=== PATIENT | female | born 1975 | race Two or more races ===

== ENCOUNTER 2024-11-08 18:23 | Emergency (ER) | payer MEDICAID, SELFPAY ==
[2024-11-08 19:05] VITALS: BP 118/81; PULSE 77; RESP 18; TEMP 36.9; O2SAT 97; BMI 29.4
--- NOTE | 2024-11-08 19:18 | XR_ITS ---
Examination: CT abdomen with intravenous contrast CT pelvis with intravenous contrast 2-D coronal reconstructions 2-D sagittal reconstructions Date and time of exam:November 08, 2024 10:27 PM Indications: Onset right lower abdominal pain nausea vomiting today. CTDI: vol (mGy) 8 DLP: (mGycm) 401 Technique: Multiple axial sections of the abdomen and pelvis have been obtained. 64 slice high-resolution scanner used. 3 mm axial sections have been obtained, post intravenous injection 60 cc [id number] 2-D sagittal, coronal reconstructions obtained. Low dose protocols were performed. One or more of the following dose reduction techniques were used; automated exposure control, adjustment of the mA and/or KV according to patient size, use of iterative reconstruction technique. Findings: Fatty infiltration throughout the liver no focal liver or splenic lesion No gallstones No pancreatic or adrenal mass No renal or ureteral calculi, hydronephrosis Aorta normal size Normal appendix No bowel obstruction No diverticulitis Intact urinary bladder Small adnexal cysts Retroverted uterus Urinary bladder intact Osseous structures intact Impression: Normal appendix No renal or ureteral calculi, no hydronephrosis No bowel obstruction diverticulitis or free air
--- NOTE | 2024-11-08 19:21 | PD.EDABDPN ---
ED Abdominal Pain RME/HPI General Chief Complaint: Abdominal Pain Stated complaint: RLQ ABD PAIN Time seen by provider: 11/08/24 19:13 Arrival date/time: 11/08/24 18:23 RME / HPI RME / HPI narrative: 49-year-old female patient came in for evaluation regarding her right lower quadrant pain. Patient's been having right lower quadrant pain for the last 3 days, describes sharp pain, severity moderate. Patient denies any vomiting denies any fever denies any diarrhea denies constipation denies any other complaints no medications prior to ER visit. Related Data Previous Rx's ?Medication ?Instructions ?Recorded ibuprofen 600 mg tablet 600 mg PO Q6H #30 tabs 03/07/23 polyethylene glycol 3350 17 4 g PO QDAY PRN constipation #119 11/08/24 gram/dose oral powder (ClearLax) grams Allergies Allergy/AdvReac Type Severity Reaction Status Date / Time No Known Allergies Allergy Verified 11/08/24 18:26 Review of Systems Review of Systems Narrative Review of Systems: Review of system reviewed and within normal limits except mentioned in HPI ED Exam Narrative Physical exam: VITAL SIGNS: Reviewed. GENERAL APPEARANCE: Alert and interactive, follows commands, no acute distress, HEAD AND FACE: Non-traumatic. ENT: PERRL, pink conjunctivitis, eyelid no trauma, Mucous membrane moist. NECK: Supple, nontender, no nuchal rigidity. CHEST: No tenderness, no crepitus, no paradoxical movement, no retractions. LUNGS: Clear, well ventilated, symmetric, no rales, no wheezing, no ronchi, no stridor, good breath sounds bilaterally. HEART: Regular rate, regular rhythm, no murmur, no gallops. ABDOMEN: Soft, positive bowel sounds, nondistended, no guarding, right lower quadrant tenderness, no rebound, no masses, RECTAL: Deferred. GENITAL: Deferred. NEUROLOGICAL: Gross motor function intact sensory function intact, Appropriate for age. MUSCULOSKELETAL: low back nontender, full range of motion. EXTREMITIES: Nontender, full range of motion. SKIN: Color pink, dry, no rash, no lacerations, no abrasions, no contusions. LYMPHATICS: Deferred. Course Quality Measures none Orders Category Date Time Status CT Screening NOW Care 11/08/24 19:[address] abdomen pelvis w con Stat Exams 11/08/24 19:18 Completed CBC Stat Lab 11/08/24 20:40 Completed Comprehensive Metabolic Panel Stat Lab 11/08/24 20:40 Completed HCG Qualitative,Urine Stat Lab 11/08/24 20:05 Completed Lipase Stat Lab 11/08/24 20:40 Completed Partial Thromboplastin Time Stat Lab 11/08/24 20:40 Completed Prothrombin Time with INR Stat Lab 11/08/24 20:40 Completed UA, C/S IF [Urinalysis, C/S if Indicated] Stat Lab 11/08/24 20:05 Completed Vital Signs Vital signs: Vital Signs Temperature 98.4 F 11/08/24 19:05 Pulse Rate 77 11/08/24 19:05 Respiratory Rate 18 11/08/24 19:05 Blood Pressure 118/81 11/08/24 19:05 Pulse Oximetry (%) 97 11/08/24 19:05 Oxygen Delivery Method Room Air 11/08/24 19:05 Abdominal Pain MDM MDM Narrative MDM Narrative:: 49-year-old female patient came in for evaluation regarding her right lower quadrant pain. Patient's been having right lower quadrant pain for the last 3 days, describes sharp pain, severity moderate. Patient denies any vomiting denies any fever denies any diarrhea denies constipation denies any other complaints no medications prior to ER visit. CT scan of the abdomen pelvis Unremarkable. Patient's laboratory workup also came normal urine is normal I do not see any abnormality at this time. Results discussed with the patient. Patient appears nontoxic and hemodynamically stable. Patient discharged home and instructed to follow-up with primary care provider in 24 to 48 hours. Instructed to return to the emergency department immediately if worsening of symptoms Patient data External records reviewed:: None Clinical information provided by:: patient Social determinants that could affect healthcare access:: none Patient has the following chronic illnesses:: None How is presenting disease/condition affected by chronic disease/condition?: no chronic disease Evaluation data The following diagnostics were reviewed and interpreted by me:: lab results and radiology exam(s) Lab and/or radiology exams considered but not ordered:: None Interpretation Summary: See results Medications / Prescriptions Medications or Prescriptions considered but not ordered:: None Medication administrations:: None Consultations Consultation(s) initiated? (list below): No Diagnosis Differential diagnosis abdominal pain: abdominal pain, constipation and small bowel obstruction Most likely diagnosis given after review of the tests above:: Abdominal pain Admission Indicated Admission indicated?: not indicated Admission Request Was there a request for admission?: No Disposition Plan Disposition Plan: Discharge Discharge Attestation Discharge Attestation: The patient was given an opportunity to ask questions and understood the discharge instructions. Discharge instructions specifically effects, indications for sooner follow up or return to the emergency department, and the expected course of current diagnosis. Patient condition: Stable Discharge Plan Plan Patient Disposition: HOME (Self Care) Disposition Comment: Stable Prescriptions/Referrals Prescriptions/Med Rec: New polyethylene glycol 3350 [ClearLax] 17 gram/dose powder 4 g PO QDAY PRN (Reason: constipation) Qty: 119 0RF No Action ibuprofen 600 mg tablet 600 mg PO Q6H Qty: 30 0RF Referrals: Carlos Sales MD [Primary Care Provider] - In 1 week Problem List Clinical Impression: Abdominal pain Patient/Caregiver Discharge Instructions Discharge Activity: activity as tolerated Education Materials: Abdominal Pain Additional Instructions: Thank you for the opportunity for serving you today. You are stable for discharged . You are advised to: Follow-up with your PCP in 1 to 2 days Return to ED for worsening of symptoms Increase oral fluids Take medication as prescribed Print Language: Ecuadorean Stand Alone Forms: Anabelle Award Info., Patient Portal Info Letter KISHORE/CONNER Supervising Physician KISHORE/CONNER Supervising Physician: MD Meseret
[2024-11-08 20:12] LABS: Collection Type, Urine Clean Catch
[2024-11-08 20:16] LABS: Bilirubin,Urine Negative (Negative); Blood,Urine Trace (Negative); Clarity,Urine Clear (Clear/Hazy); Color,Urine Lt-Yellow (Lt Yel-Yel); Culture Indicated,Urine Not Indicated; Glucose, Urine Negative (Negative); Ketones,Urine Negative (Negative); Leukocyte Esterase,Urine Negative (Negative); Nitrite,Urine Negative (Negative); PH,Urine 6.5 (5.0-7.0); Protein,Urine Trace (Neg - Trace); RBC,Urine 5 /hpf (0-3); Specific Gravity,Urine 1.024 (1.001-1.035); Squamous Epithelial Cell,Urine 1 /hpf (0-5); Urobilinogen,Urine Negative mg/dL (0.0-1.0); WBC,Urine 2 /hpf (0-5)
[2024-11-08 20:20] LABS: HCG Qualitative,Urine Negative
[2024-11-08 21:27] LABS: Basophils % (Auto) 0 % (0-2.5); Eosinophils # (Auto) 0.2 Thou/mm3 (0.0-0.5); Eosinophils % (Auto) 2 % (0-10); Hematocrit 36.5 % (36.0-46.0); Hemoglobin 12.7 g/dL (12.0-16.0); Immature Granulocytes % (Auto) 0 % (0-0); Immature Granulocytes Auto 0.02 Thou/mm3 (0.00-0.00); Lymphocytes # (Auto) 3.5 Thou/mm3 (1.0-4.8); Lymphocytes % (Auto) 33 % (10-50); Mean Corpuscular HGB Conc 34.8 g/dl (31.0-37.0); Mean Corpuscular Hemoglobin 30.2 pg (25.0-35.0); Mean Corpuscular Volume 87 fL (80-100); Monocytes # (Auto) 0.7 Thou/mm3 (0.0-0.8); Monocytes % (Auto) 7 % (0-12); Neutrophils # (Auto) 6.3 Thou/mm3 (1.8-7.7); Neutrophils % (Auto) 58 % (37-80); Nucleated Red Blood Cell % 0 /100 WBC (0); Platelet Count 226 Thou/mm3 (140-440); RDW Standard Deviation 39.8 fL (36.4-46.3); White Blood Count 10.8 Thou/mm3 (3.6-11.0)
[2024-11-08 21:47] LABS: Partial Thromboplastin Time 25.8 Seconds (22.0-36.0)
[2024-11-08 21:51] LABS: Alanine Aminotransferase 54 U/L (10-49); Albumin, Serum 4.3 gm/dL (3.5-5.0); Albumin/Globulin Ratio 1.5 (1.2-2.2); Alkaline Phosphatase 60 U/L (46-116); Anion Gap 9 (7-16); Aspartate Amino Transferase 34 U/L (0-34); BUN/Creatinine Ratio 20 Ratio (12-20); Bilirubin,Total 0.7 mg/dL (0.3-1.2); Blood Urea Nitrogen 12 mg/dL (9-23); Calcium 8.9 mg/dL (8.3-10.6); Calcium (Corrected) 8.9 mg/dL (8.5-10.1); Carbon Dioxide 24.7 mMol/L (20.0-31.0); Chloride 108 mMol/L (98-107); Creatinine (Component) 0.6 mg/dL (0.6-1.3); Estimated Creatinine Clearance 108.5 mL/min (>60); Globulin 2.9 gm/dL (2.3-3.5); Glucose 91 mg/dL (74-106); Lipase 38 U/L (12-53); Osmolality,Calculated 282 (275-295); Potassium 3.6 mMol/L (3.4-5.1); Sodium 142 mMol/L (136-145); Total Protein 7.2 gm/dL (5.7-8.2); eGFR > 60 See Note
[2024-11-08 23:00] VITALS: RESP 18
== END 2024-11-08 23:00 | disposition home or self-care (01) ==
PROVIDERS: Nurse Practitioner Family; Emergency Provider Emergency Medicine; PCP Family Medicine
DX: R10.31 Right lower quadrant pain (principal)
CPT/HCPCS: 36415; 74177; 80053; 81001; 81025; 83690; 85025; 85610; 85730; 99285; A4649; Q9967

== ENCOUNTER 2025-02-22 20:46 | Emergency (ER) | payer MEDICAID, SELFPAY ==
[2025-02-22 20:47] VITALS: BMI 26.6
--- NOTE | 2025-02-22 20:54 | XR_ITS ---
Examination: Wrist, left 3 views Technique: Wrist AP, oblique, lateral 3 views Date and time of exam: February 22, 2025 at 2054 hours INDICATIONS: Patient fell today with intravenous, wrist pain. FINDINGS: Small chip fracture dorsal to the carpal bones on the lateral view, 2 mm No dislocation IMPRESSION: Consider CT scan wrist follow-up to assess origin of the small chip fracture dorsal to the carpal bones on the lateral view
[2025-02-22 20:59] VITALS: BP 122/71; PULSE 84; RESP 18; TEMP 37.2; O2SAT 97
--- NOTE | 2025-02-22 21:18 | XR_ITS ---
Examination: CT cervical spine without contrast 2-D sagittal reconstructions 2-D coronal reconstructions 3-D reconstructions. Exam date and time:February 22, 2025, 7 hours INDICATIONS: Ground-level fall today with injury to the neck, neck pain CTDI:vol (mGy) 16.3 DLP: (mGycm) 338 Technique: Multiple 2 mm axial sections of the cervical spine have been obtained. The coronal and sagittal reconstructions have been obtained. 3-D reconstructions have been obtained. Low dose protocols were performed. One or more of the following dose reduction techniques were used; automated exposure control, adjustment of the mA and/or KV according to patient size, use of iterative reconstruction technique. Findings: Axial sections demonstrate intact base of the skull. C1 exhibit satisfactory relationship to the odontoid. No acute cervical vertebral body fracture seen. Alignment posterior spinous processes satisfactory. Impression: No acute cervical fracture.
--- NOTE | 2025-02-22 21:18 | XR_ITS ---
Examination: CT brain head without contrast. 2-D sagittal coronal reconstructions Date and time of exam:February 22, 2025 2155 hours INDICATIONS: Patient fell today with a few the head, head pain CTDI: vol (mGy):48.6 DLP: (mGycm):900 Technique: Multiple CT axial sections of the brain have been obtained, 5 mm slice thickness. Contrast has not been administered. 2-D sagittal, coronal reconstructions have been obtained Low dose protocols were performed. One or more of the following dose reduction techniques were used; automated exposure control, adjustment of the mA and/or KV according to patient size, use of iterative reconstruction technique. Findings: No significant ventricular enlargement. Intra-axial or extra-axial hemorrhage density is not seen. No mass effect or midline shift Basal cisterns are not remarkable. Fourth ventricle is midline. Cranial vault intact. Impression: Negative for acute hemorrhage, mass effect or midline shift
--- NOTE | 2025-02-22 21:18 | XR_ITS ---
Examination: CT maxillofacial, without intravenous contrast. 2-D sagittal reconstructions. 3-D reconstructions. Indications: Patient fell today, patient with facial pain. Date and time: February 22, 2025, 9:59 PM CTDI: vol (mGy): 26.8 DLP: (mGycm): 512 Technique: Multiple axial images of maxillofacial region, 3.0 mm slice thickness. 2-D sagittal and coronal reconstructions. 3-D reconstructions. Low dose protocols were performed. One or more of the following dose reduction techniques were used; automated exposure control, adjustment of the mA and/or KV according to patient size, use of iterative reconstruction technique. Findings: Frontal bone frontal sinuses intact. Orbital rims are intact. No nasal bone fracture. The maxilla maxilla and mandible appear intact IMPRESSION: No acute fracture.
--- NOTE | 2025-02-22 21:19 | PD.EDUPEX ---
Upper Extremity Injury RME/HPI General Chief Complaint: Extremity Injury, Upper Stated Complaint: LEFT WRIST INJURY Time Seen by Provider: 02/22/25 21:18 Arrival date/time: 02/22/25 20:46 49F with no significant PMH presents to ED with L-sided body pain after slip and fall. Patient has L head, face, shoulder, wrist/hand, hip, and knee pain. Limitations: no limitations Related Data Previous Rx's ?Medication ?Instructions ?Recorded ibuprofen 600 mg tablet 600 mg PO Q6H #30 tabs 03/07/23 polyethylene glycol 3350 17 4 g PO QDAY PRN constipation #119 11/08/24 gram/dose oral powder (ClearLax) grams Allergies Allergy/AdvReac Type Severity Reaction Status Date / Time No Known Allergies Allergy Verified 11/08/24 18:26 Review of Systems Review of Systems Systems Reviewed: All systems reviewed, normal except as documented Constitutional Constitutional: Reports system reviewed and no additional complaints, except as documented, Denies fever(s) and Denies headache(s) ENT Ears, Nose, Mouth, and Throat: Denies disequilibrium and Denies headache(s) Cardiovascular Cardiovascular: Reports system reviewed and no additional complaints, except as documented, Denies chest pain and Denies dyspnea Respiratory Respiratory: Reports system reviewed and no additional complaints, except as documented, Denies cough and Denies dyspnea Gastrointestinal Gastrointestinal: Reports system reviewed and no additional complaints, except as documented, Denies abdominal pain, Denies nausea and Denies vomiting Musculoskeletal Musculoskeletal: Reports as per HPI and Reports arthralgias Neurologic Neurologic: Reports system reviewed and no additional complaints, except as documented, Denies confusion, Denies disequilibrium and Denies headache(s) Psychiatric Psychiatric: Denies confusion Past Medical History Past Medical History NEUROLOGIC: Negative Neurological Disorders or Seizures CARDIAC: Negative Cardiac Disorders or Congestive Heart Failure RESPIRATORY: Negative Chronic Obstructive Pulmonary Disease (COPD) or Asthma GASTROINTESTINAL: Negative Gastrointestinal Disorders, Hepatitis or Colorectal Cancer GENITOURINARY: Negative Genitourinary Disorders, Renal Disease or Prostate Cancer REPRODUCTIVE: Negative Breast Cancer or Testicular Cancer MUSCULOSKELETAL: Negative Musculoskeletal Disorders, Bone Cancer or Carpal Tunnel Syndrome ENT: Negative Cataracts ENDOCRINE: Negative Endocrine Disorders, Diabetes Mellitus Type 1 or Diabetes Mellitus Type 2 HEMATOLOGIC: Negative Blood Disorders or Sickle Cell Disease OTHER HISTORY: Negative Hospitalization, Autoimmune Disease, Down Syndrome, Developmental Delay, Shingles, Falls, Blood Transfusions, Blood Transfusion Reaction, Anesthesia Reactions, Organ Transplant, Chemotherapy, Radiation Therapy, Hyperbaric Therapy, MRSA, VRSA, Vancomycin-Resistant Enterococci, Human Immunodeficiency Virus (HIV), Chicken Pox, Measles, Mumps, Rubella (Maltese Measles), Pertussis, Clostridium Difficile, Breast Cancer, Cervical Cancer, Colorectal Cancer, Lung Cancer, Ovarian Cancer, Prostate Cancer or Testicular Cancer Family History FAMILY HISTORY: Negative Family Psychiatric Problems, Family Respiratory Disorders, Family Cardiac Disorders, Family Gastrointestinal Problems, Family Cancer, Family Surgery or Family Anesthesia Reaction Surgical History SURGICAL: Positive Section; Negative Cardiac Surgery, Endocrine Surgery, Ear Surgery, Tympanostomy Tube, Eye Surgery, Nose Surgery, Oral Surgery, Tonsillectomy, Adenoidectomy, Cochlear Implant, Corneal Transplant, Throat Surgery, Abdominal Surgery, Tracheostomy, Nephrectomy, Transurethral Resection, Joint Replacement, Amputation, Open Reduction Internal Fixation, Arthroscopy, Neurologic Surgery, Mastectomy, Lumpectomy, Hysterectomy, Tubal Ligation or Organ Transplant Social History SMOKING STATUS: Never smoker SECOND HAND EXPOSURE: No ED Exam General Limitations: Present no limitations General appearance: Present alert and in no apparent distress Expanded Head Exam Head exam physical: Present hematoma (L-side of face) Eye Eye exam: Present normal appearance, PERRL and EOMI ENT ENT exam: Present normal exam, normal oropharynx and mucous membranes moist Neck Neck exam: Present normal inspection, full ROM and trachea midline Chest Chest inspection: Present normal inspection and symmetric chest wall rise Respiratory Respiratory exam: Present normal lung sounds bilaterally Cardiovascular Cardiovascular exam: Present regular rate, normal rhythm and normal heart sounds Abdominal Exam Abdominal exam: Present soft and normal bowel sounds Extremities Exam Extremities exam: Present full ROM Expanded Upper Extremity Exam Shoulder exam: Present full ROM and abrasion (L) Forearm/Wrist exam: Present tenderness (L); Absent full ROM Hand exam: Present tenderness; Absent full ROM Back Exam Back exam: Present normal inspection and full ROM Neurological Exam Neurological exam: Present alert, oriented X3 and CN II-XII intact Psychiatric Psychiatric exam: Present normal affect and normal mood Skin Skin exam: Present warm, dry, intact and normal color Course Quality Measures none Orders Category Date Time Status Splint / Immobilizer STAT Care 02/22/25 22:[address] cervical spine wo con Stat Exams 02/22/25 21:[address] facial bones wo con Stat Exams 02/22/25 21:[address] head/brain wo con Stat Exams 02/22/25 21:[address] wrist LT wo con Stat Exams 02/22/25 21:38 Completed XR wrist comp LT min 3V Stat Exams 02/22/25 20:54 Completed Vital Signs Vital signs: Vital Signs Temperature 98.9 F 02/22/25 20:59 Pulse Rate 84 02/22/25 20:59 Respiratory Rate 18 02/22/25 20:59 Blood Pressure 122/71 02/22/25 20:59 Pulse Oximetry (%) 97 02/22/25 20:59 Oxygen Delivery Method Room Air 02/22/25 20:59 O2 at 97% on RA and WNLs Extremity Injury MDM Narrative MDM Narrative:: 49F with no significant PMH presents to ED with L-sided body pain after slip and fall. Patient has L head, face, shoulder, wrist/hand, hip, and knee pain. Physical exam reveals some bruising on L-side of face. Neck ROM intact. L shoulder ROM intact. L wrist/hand tenderness and limited ROM. L knee/hip ROM intact. Gait normal. Patient is afebrile, calm, and alert. Various non-bleeding skin abrasions on L shoulder area. CT unremarkable except for 2 mm chip fx on triquetrum. Given splint and reimbursement counselor. Patient data External records reviewed:: [facility] previous records Clinical information provided by:: patient Social determinants that could affect healthcare access:: none Patient has the following chronic illnesses:: none How is presenting disease/condition affected by chronic disease/condition?: no chronic disease Evaluation data The following diagnostics were reviewed and interpreted by me:: radiology exam(s) Lab and/or radiology exams considered but not ordered:: ordered Interpretation Summary: above Medications / Prescriptions Medications or Prescriptions considered but not ordered:: not ordered Medication administrations:: n/a Consultations Consultation(s) initiated? (list below): No Diagnosis Upper Extremity Injury Differential Diagnosis: sprain and strain of wrist, fracture of wrist, finger sprain, dislocation of finger, Colles' fracture, fracture of hand and other (CHI, soft tissue contusion, skin abrasions) Most likely diagnosis given after review of the tests above:: hand fracture, skin abrasion, and soft tissue contusion, CHI Admission Indicated Admission indicated?: not indicated Admission Request Was there a request for admission?: No Disposition Plan Disposition Plan: Discharge Discharge Attestation Discharge Attestation: The patient and all family members were given an opportunity to ask questions and understood the discharge instructions. Discharge instructions specifically effects, indications for sooner follow up or return to the emergency department, and the expected course of current diagnosis. Patient condition: Stable Discharge Plan Plan Patient Disposition: HOME (Self Care) Discharge Disposition comment: Stable Prescriptions/Referrals Prescriptions/Med Rec: No Action ibuprofen 600 mg tablet 600 mg PO Q6H Qty: 30 0RF polyethylene glycol 3350 [ClearLax] 17 gram/dose powder 4 g PO QDAY PRN (Reason: constipation) Qty: 119 0RF Referrals: No Primary/Family,Physician [Primary Care Provider] - In 1 week Problem List Clinical Impression: Fracture of hand, Contusion of soft tissue, Abrasion of skin, CHI (closed head injury) Patient/Caregiver Discharge Instructions Education Materials: ED Abrasions, ED Soft Tissue Contusion, ED Closed Hand Fracture (Adult), ED Head Injury with Sleep ... Additional Instructions: Please follow-up with PCP within 24-48 hours and return immediately if symptoms worsen. If problem persists, recommend outpatient PT and/or MRI follow-up. In the meantime, rest, use ice/heat, and/or compression. Can see PCP for referral to hand surgeon. Print Language: Tajik Stand Alone Forms: Patient Portal Info Letter KISHORE/CONNER Supervising Physician KISHORE/CONNER Supervising Physician: Dr. Worthy
--- NOTE | 2025-02-22 21:38 | XR_ITS ---
Examination: CT left wrist, without contrast. 2-D sagittal reconstructions. 2-D coronal reconstructions. 3-D reconstructions. Date and time of exam:February 22, 2025, 1004 hours INDICATIONS: Patient slipped and fell today with injury to the wrist, wrist pain CTDI: vol (mGy):3.74 DLP: (mGycm):105 Technique: Multiple 1.25 mm axial sections of the left wrist without intravenous contrast have been obtained. 2-D sagittal and coronal reconstructions have been obtained. 3-D reconstructions have been obtained. Low dose protocols were performed. One or more of the following dose reduction techniques were used; automated exposure control, adjustment of the mA and/or KV according to patient size, use of iterative reconstruction technique. Findings: Distal radius distal ulna is intact Small acute chip fracture off the dorsal surface of the triquetrum axial image 117, coronal image 43 Metacarpals appear intact IMPRESSION: 2 mm acute chip fracture off the dorsal surface of the triquetrum
== END 2025-02-23 00:17 | disposition home or self-care (01) ==
PROVIDERS: Emergency Provider Emergency Medicine
DX: S62.112A Displaced fracture of triquetrum [cuneiform] bone, left wrist, initial encounter for closed fracture (principal); S00.93XA Contusion of unspecified part of head, initial encounter; S80.812A Abrasion, left lower leg, initial encounter; S19.9XXA Unspecified injury of neck, initial encounter; R51.9 Headache, unspecified; W01.0XXA Fall on same level from slipping, tripping and stumbling without subsequent striking against object, initial encounter
CPT/HCPCS: 29125; 70450; 70486; 72125; 73110; 73200; 99284

== ENCOUNTER → 2025-03-02 | Outpatient (CLI) | payer MEDICAID, SELFPAY ==
--- NOTE | 2025-03-02 09:02 | XR_ITS ---
Examination: Wrist, left 3 views Technique: Wrist AP, oblique, lateral 3 views Date and time of exam: March 12, 2025 0943 hours INDICATIONS: Injury to the wrist January 2025, CT wrist February 22, 2025 2 mm chip fracture off the dorsal surface of the triquetrum FINDINGS: No fracture depicted on this study On the hand examination today 2 mm chip fracture dorsal to the carpal bones on the lateral view IMPRESSION: Satisfactory alignment osseous structures
--- NOTE | 2025-03-02 09:02 | XR_ITS ---
Examination: Hand, left 3 views Technique: Hand AP, oblique, lateral 3 views Date and time of exam: March 12, 2025 0943 hours INDICATIONS: Injury January 2025 to the wrist, CT study February 22, 2025 2 mm chip fracture off the dorsal surface of the triquetrum FINDINGS: Moderate narrowing fifth metacarpal phalangeal joint 2 mm chip fracture dorsal to the carpal bones on the lateral view IMPRESSION: 2 mm chip fracture dorsal to the carpal bones on the lateral view
== END | disposition home or self-care (01) ==
PROVIDERS: Referring Provider Nurse Practitioner Gerontology; Visit Provider Nurse Practitioner Gerontology
DX: S62.102A Fracture of unspecified carpal bone, left wrist, initial encounter for closed fracture (principal); X58.XXXA Exposure to other specified factors, initial encounter
CPT/HCPCS: 73110; 73130

== ENCOUNTER → 2025-04-04 | Outpatient (CLI) | payer MEDICAID, SELFPAY ==
--- NOTE | 2025-04-04 10:08 | XR_ITS ---
Examination: Hand, left 3 views Technique: Hand AP, oblique, lateral 3 views Date and time of exam: April 04 thousand 25, 1014 hours INDICATIONS: History fracture fifth digit FINDINGS: Tiny bone density dorsal to the carpal bones No acute fracture depicted Prominent osteopenia IMPRESSION: No acute digit fracture noted
== END | disposition home or self-care (01) ==
LOC: CDIM 09:54
PROVIDERS: Referring Provider Nurse Practitioner Gerontology; Visit Provider Nurse Practitioner Gerontology
DX: M79.642 Pain in left hand (principal)
CPT/HCPCS: 73130

== ENCOUNTER → 2025-04-12 | Outpatient (CLI) | payer MEDICAID, SELFPAY ==
--- NOTE | 2025-04-12 09:49 | XR_ITS ---
Examination: Wrist, left 3 views Technique: Wrist AP, oblique, lateral 3 views Date and time of exam: April 12, 2020 5:11 AM INDICATIONS: Wrist fracture February 22, 2025 FINDINGS: On this study alignment of the osseous structures is satisfactory Please see the CT wrist report February 22, 2025 IMPRESSION: Consider repeat CT chest without contrast to assess the 2 mm chip fracture off the dorsal surface of the triquetrum
== END | disposition home or self-care (01) ==
PROVIDERS: Referring Provider Nurse Practitioner Gerontology; Visit Provider Nurse Practitioner Gerontology
DX: S62.172A Displaced fracture of trapezium [larger multangular], left wrist, initial encounter for closed fracture (principal); X58.XXXA Exposure to other specified factors, initial encounter
CPT/HCPCS: 73110

== ENCOUNTER → 2025-05-10 | Outpatient (CLI) | payer MEDICAID, SELFPAY ==
--- NOTE | 2025-05-10 09:30 | XR_ITS ---
Examination: CT left wrist, without contrast. 2-D sagittal reconstructions. 2-D coronal reconstructions. 3-D reconstructions. Date and time of exam: May 10, 2025, 0937 hours INDICATIONS: Patient fell 3 months ago with injury to the wrist, 2 mm chip fracture on plain films 04/12/2025 which appears to be off the dorsal surface of the triquetrum CTDI: vol (mGy): 2.76 DLP: (mGycm): 58.6 Technique: Multiple 1.25 mm axial sections of the left wrist without intravenous contrast have been obtained. 2-D sagittal and coronal reconstructions have been obtained. 3-D reconstructions have been obtained. Low dose protocols were performed. One or more of the following dose reduction techniques were used; automated exposure control, adjustment of the mA and/or KV according to patient size, use of iterative reconstruction technique. Findings: Distal radius distal ulna intact Carpal bones appear intact No carpal dislocation No foreign body There is subtle irregularity at the dorsal surface of the triquetrum axial image 49 IMPRESSION: Subtle irregularity of the dorsal surface of the triquetrum Recommend MRI wrist follow-up to exclude bone contusion small subtle fractures dorsal surface of the triquetrum
== END | disposition home or self-care (01) ==
LOC: CCTX 09:27
PROVIDERS: Referring Provider Nurse Practitioner Gerontology; Visit Provider Nurse Practitioner Gerontology
DX: M25.532 Pain in left wrist (principal); S69.92XS Unspecified injury of left wrist, hand and finger(s), sequela; W19.XXXS Unspecified fall, sequela
CPT/HCPCS: 73200

== ENCOUNTER → 2025-07-16 | Outpatient (CLI) | payer MEDICAID, SELFPAY ==
--- NOTE | 2025-07-16 07:00 | XR_ITS ---
Examination: MRI left hand without contrast Date and time of exam: July 16, 2025, 0858 hours INDICATIONS: Left wrist pain and swelling paresthesias 6 months after fall resulting in wrist fracture Technique: Multiple MRI axial and sagittal sections left hand Sagittal T2-weighted images, TR 3500, TE 118 T1 weighted transverse sections, TR 688 T8.5, T2-weighted sagittal sections T1 weighted sagittal sections TR 621, TE 30 T2 axial sections, TR 4, 190, TE 84. Findings: Adequate marrow signal visualized carpal bones and metacarpals digits No asymmetric effusions No annular christina tears Edema around the flexor tendon fifth digit distal phalanx Flexor and extensor tendons intact No ganglion cyst IMPRESSION: No occult fracture or bone contusion or marrow edema Edema around the flexor tendon fifth digit distal phalanx but the tendon appears intact
--- NOTE | 2025-07-16 07:30 | XR_ITS ---
Examination: MRI left wrist without contrast Date and time of exam: July 16, 2025, 0839 hours INDICATIONS: Left wrist pain and swelling paresthesias 5 months, history left wrist fracture Technique: Multiple MRI axial and sagittal sections lumbar spine. Sagittal T2-weighted images, TR 3500, TE 118 T1 weighted transverse sections, TR 688 T8.5, T2-weighted sagittal sections T1 weighted sagittal sections TR 621, TE 30 T2 axial sections, TR 4, 190, TE 84. Findings: No bone contusion or marrow edema or occult fracture involving distal radius distal ulna Carpal bones do appear intact Triangular fibrocartilage is intact Normal-appearing flexor tendons normal appearing median nerve Extensor tendons intact IMPRESSION: No occult fracture Per the CT wrist report May 10, 2025, contusion involving the triquetrium is not identified
== END | disposition home or self-care (01) ==
PROVIDERS: Referring Provider Nurse Practitioner Gerontology; Visit Provider Nurse Practitioner Gerontology
DX: M79.642 Pain in left hand (principal); M25.532 Pain in left wrist; R60.9 Edema, unspecified; Z87.81 Personal history of (healed) traumatic fracture
CPT/HCPCS: 73218; 73221